=== PATIENT | female | born 1980 | race Caucasian/White ===

== ENCOUNTER 2018-05-12 17:38 | Emergency (ER) | END 2018-05-13 14:50 | disposition left against medical advice (07) ==

== ENCOUNTER 2018-05-12 17:58 | Outpatient (CLI) | END 2018-05-12 21:10 | disposition home or self-care (01) ==

== ENCOUNTER 2018-05-12 21:16 | Emergency (ER) | END 2018-05-12 21:53 | disposition home or self-care (01) ==

== ENCOUNTER 2018-06-06 13:31 | Outpatient (CLI) | END 2018-06-06 15:42 | disposition home or self-care (01) ==

== ENCOUNTER 2018-06-16 06:33 | Inpatient (IN) | payer OTHER ==
[~2018-06-16 06:33] MED LIST: PREN-93 PO
[2018-06-16] MEDS ORDERED: PROPOFOL 200 MG INJ ONE (07:00)
[2018-06-16] MEDS ORDERED: MISOPROSTOL 200 MCG TAB PR PRN ×3 (07:00→12:00)
[2018-06-16] MEDS ORDERED: OXYTOCIN 30 UNITS/LR 500 ML IV PRN ×3 (07:00→12:00)
[2018-06-16] MEDS ORDERED: CARBOPROST 250 MCG INJ IM PRN ×3 (07:00→12:00)
[2018-06-16] MEDS ORDERED: OXYTOCIN 30 UNITS/LR 500 ML BAG IV ONE (07:00)
[2018-06-16] MEDS ORDERED: METHYLERGONOVINE 0.2 MG INJ IM PRN ×3 (07:00→12:00)
--- NOTE | 2018-06-16 07:10 | HP ---
Date/Time of Note Date/Time of Note DATE: 06/16/18 TIME: 07:09 OB - History Hx of Present Free Text/Dictation FOR C/S REPEAT WITH HTN Care: Good Care Ultrasounds: Normal mid trimester US Obstetrical Complications: Gestational Hypertension Past Family/Social History * Past Medical, Surgical, Family and Obstetric Histories reviewed from chart. OB Admission Exam Physical Exam HEENT: WNL Heart: Rhythm Normal Lungs: Clear, Equal Abdomen: WNL Extremities: Normal Reflexes: Normal Cervical Dilatation: None Effacement: 0% Accelerations: Accelerations Present Decelerations: No Decelerations Varibility: Moderate Contractions on Admission: None OB Assessment/Plan Reason for admission: section Plan: Section (AND BTL) SHELBY GAITAN MD Jun 16, 2018 07:10
[2018-06-16] MEDS: LACTATED RINGER'S 1,000 ML IV SCH ×3 (07:11→22:51)
--- NOTE | 2018-06-16 07:16 | PREAC ---
Date/Time of Note Date/Time of Note DATE: 06/16/18 TIME: 07:15 Anesthesia Eval and Record Evaluation Time Pre-Procedure Interview DATE: 06/16/18 TIME: 07:15 Age 38 Sex female NPO: 8 hrs Preoperative diagnosis term labor Planned procedure previous Csection Past Medical History Past Medical History: None Surgery & Anesthesia Issues No known issue Meds Anticoagulation: No Beta Melvi within 24 hr: No Reason Beta Melvi not given: Pt. not on B-Melvi Active Scripts Vit No.124/Iron/FA ( Vitamin Tablet) 1 Each Tablet, 1 EACH PO DAILY, #30 TAB Prov:DENIA ROSADO 05/12/18 Current Medications Lactated Ringer's 1,000 ml @ 125 mls/hr Q8H IV Last administered on 06/16/18at 07:11; Admin Dose 125 MLS/HR; Start 06/16/18 at 06:51 Oxytocin/Lactated Ringer's 500 ml @ 0 mls/hr ONCE PRN IV VAGINAL BLEEDING; Start 06/16/18 at 07:00 Methylergonovine Maleate (Methergine) 0.2 mg ONCE PRN IM VAGINAL BLEEDING; Start 06/16/18 at 07:00 Carboprost Tromethamine (Hemabate) 250 mcg ONCE PRN IM VAGINAL BLEEDING; Start 06/16/18 at 07:00 Misoprostol (Cytotec) 1,000 mcg ONCE PRN MI VAGINAL BLEEDING; Start 06/16/18 at 07:00 Meds reviewed: Yes Allergies Coded Allergies: No Known Allergy (Unverified , 06/16/18) Allergies Reviewed: Yes Labs/Studies Labs Reviewed: Reviewed by anesthesiologist test: Positive Pre-procedure Exam Airway: Adequate mouth opening, Adequate thyromental dist Mallampati: Mallampati III Teeth: Normal Lung: Normal Heart: Normal ASA Physical Status ASA physical status: 2 Emergency: None Planned Anesthetic Neuraxial: Spinal Planned Pain Management Sub-arachniod narcotics, Parenteral pain med, Other neuraxial med, Local by surgeon Pre-operative Attestations Prior to commencing anesthesia and surgery, the patient was re-evaluated, there was verification of: *The patient's identity *The results of appropriate recent lab work and preoperative vital signs *The above evaluation not changing prior to induction *Anesthetic plan, risk benefits, alternative and complications discussed with patient/family; questions answered; patient/family understands, accepts and wishes to proceed. SARA CARTER MD Jun 16, 2018 07:16
[2018-06-16] MEDS ORDERED: ZOLPIDEM 5 MG TAB PO PRN (07:30)
[2018-06-16] MEDS ORDERED: ONDANSETRON 4 MG INJ IV PRN ×2 (07:30)
[2018-06-16] MEDS ORDERED: CEFAZOLIN 2 GM/50 ML (PMX) 50 ML IVPB SCH (07:30)
[2018-06-16] MEDS ORDERED: OXYTOCIN 10 UNIT INJ ONE (07:30)
[2018-06-16] MEDS ORDERED: HYDROmorphONE 0.5 MG/0.5 ML SYG IV PRN ×2 (07:30)
[2018-06-16] MEDS ORDERED: OXYTOCIN 30 UNITS/LR 500 ML IV SCH ×2 (07:30→11:58)
[2018-06-16] MEDS ORDERED: HYDROmorphONE 1 MG/5 ML IV SYRINGE IV PRN ×3 (07:30)
[2018-06-16] MEDS ORDERED: morphine SULFATE/PF (10 MG/10 ML) INJ ONE (07:30)
[2018-06-16] MEDS ORDERED: NALOXONE (0.4 MG/ML) INJ IV PRN (07:30)
[2018-06-16] MEDS ORDERED: FENTAnyl 50 MCG/ML VIAL IV PRN ×2 (07:30)
[2018-06-16] MEDS ORDERED: KETOROLAC 30 MG INJ IV PRN ×2 (07:30)
[2018-06-16] MEDS ORDERED: DIPHENHYDRAMINE 50 MG INJ IV PRN ×2 (07:30)
[2018-06-16] MEDS ORDERED: EPINEPHrine 1 MG INJ ONE (07:43)
[2018-06-16] MEDS ORDERED: METOCLOPRAMIDE 10 MG INJ ONE (08:14)
[2018-06-16] MEDS ORDERED: FAMOTIDINE 20 MG INJ ONE (08:15)
[2018-06-16] MEDS ORDERED: MIDAZOLAM 1 MG/ML 2 ML INJ ONE (08:35)
--- NOTE | 2018-06-16 09:30 | OPR ---
Operative Report Planned Procedure Free Text/Dictation c/s for elevated bile acids and prior c/s and PIH Procedure date Jun 16, 2018 Procedure(s) repeat c/s and btl Performed by see signature line [employer] Installer: XOCHILT ÁLVAREZ MD Pre-procedure diagnosis repeat c/s and btl [id number] Anesthesia Type: [id number] spinal Post-Procedure Post-procedure diagnosis same Findings Live Baby [], Apgars [] and [], weight [], position [], [] presentation []cord. Estimated Blood Loss: 600 - 700 mls Specimen(s) none Grafts/Implant(s) none Complication(s) none Procedure Description Under satisfactory spinal [] anesthesia, the patient was prepped and draped and placed in a supine position, tilted to the left. Pfannenstiel incision was made, carried through the subcutaneous tissue. Bleeders brought under control with electrocautery. Fascia incised to the length of the incision. Rectus muscles from the fascia, divided midline. Peritoneum exposed, entered through a transverse incision. Exploration of abdomen revealed gravid uterus. Bladder flap was developed. Transverse incision was made in the lower segment of the uterus. Amniotic sac ruptured. [clear] amniotic fluid noted. [] Nasal oropharyngeal suction was performed. The baby was handed to the team for immediate attention. The placenta was delivered manually intact. Uterine cavity was cleaned with wet sponge and drainage established. Uterus closed in 2 layers using [one monocryl] in continuous fashion. Peritoneal cavity irrigated with warm saline. the right and left tube were each ligated twice using o plain tie and cut. Sponge, needle and instrument count reported to be correct. Abdominal peritoneum closed with [one monocryl] continuously. Fascia closed with one monocryl[], and skin closed with ran. Estimated blood loss 700[]mL. SHELBY GAITAN MD Jun 16, 2018 09:30
[2018-06-16 11:40] VITALS: BP 100/54; PULSE 57; RESP 16
--- NOTE | 2018-06-16 11:40 | NUR ---
PATIENT ADMITTED TO ROOM 302 VIA GURNEY BY TRANSPORT. REPORT RECEIVED FROM DONNIE SMITH. FUNDUS FIRM, VITALS STABLE. PATIENT DENIES PAIN AT THIS TIME. ORIENTED PATIENT TO ROOM, PLACE, PERSON. ID BANDS CHECKED WITH BABY AND MATCHED. ID BANDS X4. PATIENT'S SISTER AT THE BEDSIDE. PROVIDED PATIENT WITH ICE CHIPS.
[2018-06-16] MEDS ORDERED: LACTATED RINGER'S 1,000 ML IV SCH (11:58)
[2018-06-16 12:00] VITALS: BP 101/57; PULSE 62; RESP 17
[2018-06-16] MEDS ORDERED: HYDROCODONE/APAP (5/325) TAB PO PRN (12:00)
[2018-06-16] MEDS ORDERED: NACL 0.9% 3 ML SYG IV SCH (12:00)
[2018-06-16] MEDS ORDERED: NA PHOSPHATE/BIPHOS 133 ML ENEMA PR PRN (12:00)
[2018-06-16] MEDS ORDERED: LANOLIN HPA 1 PKT TOP PRN (12:00)
[2018-06-16 12:30] VITALS: BP 105/56; PULSE 75; RESP 16
--- NOTE | 2018-06-16 13:01 | PAC ---
Date/Time of Note Date/Time of Note DATE: 06/16/18 TIME: 13:01 Post-Anesthesia Notes Post-Anesthesia Note Activity: WNL Respiratory function: WNL Cardiovascular function: WNL Mental status: Baseline Pain reasonably controlled: Yes Hydration appropriate: Yes Nausea/Vomiting absent: Yes SARA CARTER MD Jun 16, 2018 13:01
[2018-06-16 15:52] VITALS: BP 99/56; PULSE 69; RESP 17
--- NOTE | 2018-06-16 17:39 | NUR ---
EOSS: PATIENT IN STABLE CONDITION. IN NICU. IV INFUSING WELL. DENIES ANY PAIN AT THIS TIME. JOHN CATHETER DRAINING TO GRAVITY WELL.
--- NOTE | 2018-06-16 19:11 | NUR ---
patient pumped breast milk 6.5mls sent to nicu.
[2018-06-16 20:00] VITALS: BP 93/52; PULSE 80; RESP 20
--- NOTE | 2018-06-16 20:00 | NUR ---
PT PUMPED AND SENT 15 MIL OF BREAT MILK TO NICU.
--- NOTE | 2018-06-16 22:00 | NUR ---
PATIENT WENT TO NICU VIA W/C WITH RN.
[2018-06-17] VITALS (7 sets, daily range): BP systolic 100–128; BP diastolic 58–72; PULSE 68–78; RESP 16–22
--- NOTE | 2018-06-17 05:20 | NUR ---
LAB IN ROOM FOR BLOOD WORK AND BLOOD CULTURE NUMBER 1 OF 2. LAD TOOK CLEAN CATCH URINE TO LAB.
[2018-06-17] MEDS ORDERED: PIPER-TAZO 3.375 GM IV (PMX) 100 ML IVPB SCH (06:00)
--- NOTE | 2018-06-17 06:30 | NUR ---
Conte catheter removed.
[2018-06-17] MEDS: PIPER-TAZO 3.375 GM IV (PMX) 100 ML IVPB SCH ×3 (06:33→17:45)
--- NOTE | 2018-06-17 06:59 | NUR ---
EOSS: PT HAD 101.1 FEVER AT 0400. LABORIST COVERING FOR DR. GAITAN. BLOOD WORK AND BLOOD CULTURES X2 AND URINE CULTURE ORDERED. PT MOVING WELL. FUNDUS FIRM, BLEEDING MODERATE. PT UP TO THE BR FOR JAZMYNE CARE. JOHN REMOVED AT 0630. IV ANTIBIOTIC ZOZSYN STARTED AT 0630. PT FEELS GOOD. PT WENT TO NICU BY W/C LAST NIGHT. TOLERATED WELL. ABDOMINAL DRESSING DRY AND INTACT.
[2018-06-17] MEDS: LACTATED RINGER'S 1,000 ML IV SCH ×3 (07:29→22:51)
--- NOTE | 2018-06-17 07:30 | NUR ---
BEDSIDE REPORT DONE. PT. APPEARS W/OUT DISTRESS AND DENIES AND FEVER, CHILLS, SOB, PAIN. PT. STATES SHE IS COMFORTABLE AND POC RVWD. R/T FEBRILE AND ANTIBIOTICS, BUT NOT LIMITED TO. DRESSING D&I AND WILL BE REMOVED TODAY. PT. CAN DEMONSTRATE USE OF TELEPHONE TO CALL RN.
[2018-06-17] MEDS ORDERED: ACETAMINOPHEN 325 MG TAB PO PRN (08:30)
--- NOTE | 2018-06-17 09:45 | NUR ---
PT. EXPRESSED 30ML OF BREASTMILK VIA DOUBLE PUMP. RN ASSISTED AND TEACHING PT. WASHING EQUIPMENT AND LABELING MILK. PT. AFEBRILE AT THIS TIME W/ TYLENOL BEING EFFECTIVE AT THIS TIME. PT. DENIES ANY DISTRESS AND IS GOING TO SHOWER AT THIS TIME. FAMILY MEMEBER AT BEDSIDE.
--- NOTE | 2018-06-17 10:45 | NUR ---
RN AT BEDSIDE AND DRESSING RMVD. STERI STRIPS IN PLACE. Eliazar
[2018-06-17] MEDS: IBUPROFEN 800 MG TAB PO SCH ×2 (13:19→22:20)
--- NOTE | 2018-06-17 15:50 | QN ---
Documentation Comment POD# 1 is stable No VB +Flatus +Adequate urine VS stable Gen NAD Abd soft NT ND Genitalia No blood at perineum --->Ambulation DAVE CHANDLER M.D. Jun 17, 2018 15:49
--- NOTE | 2018-06-17 18:00 | NUR ---
PT.IS STABLE AT THIS TIME, AND OF NOW IS AFEBRILE.PT.SHOWERED TODAY AND HAS BEEN DOWN TO NICU X2 THIS SHIFT. PT. RECEIVING IV ANTIBIOTICS. PT.IS UP ADLIB.
[2018-06-18 00:05] VITALS: BP 129/71; PULSE 84; RESP 18
[2018-06-18] MEDS: PIPER-TAZO 3.375 GM IV (PMX) 100 ML IVPB SCH ×2 (00:26→06:29)
[2018-06-18 05:26] VITALS: BP 123/67; PULSE 89; RESP 17
[2018-06-18] MEDS: IBUPROFEN 800 MG TAB PO SCH ×3 (06:31→22:30)
[2018-06-18] MEDS: LACTATED RINGER'S 1,000 ML IV SCH (06:51)
--- NOTE | 2018-06-18 06:56 | NUR ---
Pt is stable, incision is dry and intact. Pt ambulated most of evening before arriving at 1900 I was told on report. Pt has rested well with few complaints this evening.
--- NOTE | 2018-06-18 08:20 | NUR ---
PT.CONT.TO SLEEP W/OUT DISTRESS R.R.14. IN INFUSING PER ORDER. RN CONT.TO CHECK ON PT.
[2018-06-18 09:32] VITALS: BP 102/60; PULSE 61; RESP 20
--- NOTE | 2018-06-18 11:30 | NUR ---
visit. PT stated she has some pain when pumping. PT is using small flanges. Provided PT with size 27 flanges for better comfort. Nipples are large and everted, Third spacing, Edema. Taught therapeutic breast massage and reverse pressure softening. Provided ice for areolas. Rev. proper pump use, care and schedule. Provided larger syringes. Called [facility] for pump referral. Provided ext.
--- NOTE | 2018-06-18 11:41 | QN ---
Documentation Comment POD#2 is stable No VB +BM +voids VS stable Gen NAD Abd soft NT ND Incision intact Genitalia No blood at perineum --->Ambulation DAVE CHANDLER M.D. Jun 18, 2018 11:41
--- NOTE | 2018-06-18 12:19 | NUR ---
PT.STABLE AT THIS TIME.PT.HAS BEEN UP AND SHOWERED. RN HAD KORY ORTHOPAEDIC DOCTOR TO LOOK AT INCISION THAT HAS BROWNISH DRIED DISCHARGE W/OUT ANY SHARON.,THE LABORIST ALSO ROUNDED ON PT.THIS A.M. AND ORDERS TO D/CIV. TIP INTACT AND W/OUT COMPLICATIONS. PT.ALSO HAS HAD L.C.TO ASSIST W/PUMPING. EXPRESSED MILK BEING TAKEN TO NICU.
--- NOTE | 2018-06-18 15:12 | NUR ---
PT. DOWN IN NICU AT THIS TIME. WILL EVAL. WHEN PT. BACK UP TO UNIT.
[2018-06-18 16:23] VITALS: BP 122/81; PULSE 71; RESP 20
--- NOTE | 2018-06-18 17:39 | NUR ---
EOSS: PT. STABLE AND HAS VISITED BABY IN NICU. PT. PUMPING BREASTMILK AND HAS BEEN SEEN BY Mame VS WNL. PT. DENIES ANY DISTRESS AT THIS TIME. IV WAS D/C'D EARLIER TODAY W/OUT COMPLICATIONS. CONT. W/ POC
[2018-06-18 20:00] VITALS: BP 119/75; PULSE 68; RESP 20
[2018-06-19 04:00] VITALS: BP 107/62; PULSE 74; RESP 18
--- NOTE | 2018-06-19 06:10 | NUR ---
EOSS: FUNDUS FIRM, LOCHIA SMALL. INCISION CLEAN AND DRY. PT SHOWERED AT 2200 AND GOT SOME MILK TO DRAIN FROM HER BREASTS. SHE THEN PUMPED AND SENT 1 SYRINGE TO NICU. PT THEN SLEPT THE REST OF THE NIGHT. BREASTS STILL ENGOURAGED THIS AM.
[2018-06-19] MEDS: IBUPROFEN 800 MG TAB PO SCH (06:47)
--- NOTE | 2018-06-19 08:50 | NUR ---
f/u. PT is engorged. both areola are peeling, base of right nipple is cracked. Third spacing. Placed ice packs for 10min on both breasts. Assisted with therapeutic breast massage and hand expression. PT feels pain with hand expression but is ok to continue. Unable to express any breast milk from right breast after massage and reverse pressure softening. Assisted with hand expression and reverse pressure softening on left side. LE was able to express 15mls. Encouraged PT to continue to use cold compress, do therapeutic breast massage, reverse pressure softening and practice hand expression before using breast pump. Pt stated her son picked up breast pump from [facility]. Provided ext and support group info. Encouraged Pt to call for assistance.
[2018-06-19] MEDS ORDERED: DIPHTH/TET/ACEL PERTUSS (ADULT) 0.5 ML VIAL IM* ONE (09:00)
[2018-06-19] MEDS ORDERED: MEASLES,MUMPS,RUBELLA VACCINE INJ SC* ONE (09:00)
--- NOTE | 2018-06-19 11:22 | QN ---
Documentation Comment POD#3 is stable No VB +BM +voids VS stable Gen NAD Abd soft NT ND Incision intact Genitalia No blood at perineum --->Ambulation DAVE CHANDLER M.D. Jun 19, 2018 11:22
--- NOTE | 2018-06-19 11:23 | DS ---
Date/Time of Note Date/Time of Note DATE: 06/19/18 TIME: 11:22 Discharge Summary Admission/Discharge Info Admit Date/Time Jun 16, 2018 at 06:33 Discharge Date/Time 06/19/2018 Discharge Diagnosis Patient Condition: Good Hospital Course uneventful Home Meds Active Scripts Vit No.124/Iron/FA ( Vitamin Tablet) 1 Each Tablet, 1 EACH PO DAILY, #30 TAB Prov:DENIA ROSADO 05/12/18 Primary Care Provider Not On Staff Doctor DAVE CHANDLER M.D. Jun 19, 2018 11:23
[2018-06-19 13:04] VITALS: BP 116/73; PULSE 80; RESP 18
== END 2018-06-19 14:05 | disposition home or self-care (01) | DRG 785 ==
LOC: L-D 06:33 → PP1 11:40
PROVIDERS: ADMIT Obstetrics & Gynecology; ATTEND Obstetrics & Gynecology
PROC: 0UB70ZZ Excision of Bilateral Fallopian Tubes, Open Approach (ICD-10-PCS; 2018-06-16)
PROC: 10D00Z1 Extraction of Products of Conception, Low, Open Approach (ICD-10-PCS; principal; 2018-06-16 07:30)
DX: O13.3 Gestational [pregnancy-induced] hypertension without significant proteinuria, third trimester (principal); O34.219 Maternal care for unspecified type scar from previous cesarean delivery; Z37.0 Single live birth; Z30.2 Encounter for sterilization; Z3A.36 36 weeks gestation of pregnancy
CPT/HCPCS: 80053; 83605; 85025; 85610; 85730; 86592; 86850; 86900; 86901; 87040; 87086; 88302; 99464; J0171; J0690; J1885; J2250; J2274; J2543; J2590; J2765; J7120